=== PATIENT | male | born 1995 | race Caucasian/White ===

== ENCOUNTER 2018-08-09 22:04 | Emergency (ER) | payer OTHER ==
[2018-08-09 22:34] VITALS: BP 119/65; PULSE 66; TEMP 98.4; BMI 22.7
--- NOTE | 2018-08-09 22:42 | PDOC ---
History of Present Illness - General Chief Complaint: Overdose Stated Complaint: DRUG OVERDOSE - History of Present Illness Initial Comments: The pt is a 23M w/ a history of substance abuse who presents from [facility] for evaluation of overdose. Per the pt's father the pt used heroin and xanax today. The pt reports that he smoked an unknown substance. He currently denies any symptoms or pain. Denies EtOH use. Denies recent illness, fevers/chills, cough, chest pain, abdominal pain, N/V/C/D , or changes in sensation. Pt received Narcan at about 2200. 08/09/18 23:03 Past History - Past Medical History Allergies/Adverse Reactions: Allergies Allergy/AdvReac Type Severity Reaction Status Date / Time No Known Allergies Allergy Verified 08/09/18 22:33 COPD: No - Suicide/Smoking/Psychosocial Hx Smoking History: Current every day smoker Have you smoked in the past 12 months: Yes Number of Cigarettes Smoked Daily: 20 Information on smoking cessation initiated: No Hx Alcohol Use: No Drug/Substance Use Hx: No Review of Systems - Review of Systems Able to Perform ROS?: Yes Comments:: GENERAL/CONSTITUTIONAL: No fever or chills. No weakness HEAD, EYES, EARS, NOSE AND THROAT: No change in vision. No ear pain or discharge. No sore throat CARDIOVASCULAR: No chest pain or shortness of breath RESPIRATORY: Denies cough, hemoptysis GASTROINTESTINAL: No nausea, vomiting, diarrhea or constipation GENITOURINARY: No dysuria, frequency, or change in urination MUSCULOSKELETAL: No joint or muscle swelling or pain. No neck or back pain SKIN: No rash NEUROLOGIC: No headache, vertigo, loss of consciousness, or change in strength/ sensation ENDOCRINE: No increased thirst. No abnormal weight change HEMATOLOGIC/LYMPHATIC: No anemia, easy bleeding, or history of blood clots ALLERGIC/IMMUNOLOGIC: No hives or skin allergy 08/09/18 22:42 Is the patient limited Mohawk proficient: No *Physical Exam - Vital Signs Last Vital Signs Temp Pulse Resp BP Pulse Ox 98.4 F 66 17 119/65 100 08/09/18 22:30 08/09/18 22:30 08/09/18 22:30 08/09/18 22:30 08/09/18 22:30 - Physical Exam Comments: GENERAL: Awake, alert, and oriented to person/place/time, in no acute distress HEAD: No signs of trauma, normocephalic, atraumatic EYES: PERRLA, EOMI, sclera anicteric, conjunctiva clear ENT: Hearing grossly normal, nares patent, oropharynx clear without exudates. Moist mucosa LUNGS: No distress, speaks full sentences, clear to auscultation bilaterally HEART: Regular rate and rhythm, normal S1 and S2, no murmurs appreciated, peripheral pulses normal and equal bilaterally ABDOMEN: Soft, nontender, normoactive bowel sounds. No guarding, no rebound EXTREMITIES: Normal inspection, Normal range of motion, no edema. No clubbing or cyanosis NEUROLOGICAL: Cranial nerves II through XII grossly intact. Normal speech, normal gait, no focal sensorimotor deficits SKIN: Warm, Dry 08/09/18 22:42 Medical Decision Making - Medical Decision Making The pt is a 23M w/ a history of heroin and xanax abuse who presents from [facility] for evaluation of overdose. Pt observed until clinically sober. Pt oriented x3, ambulating in ED w/ stable gait, speech clear. Patient does not wish to return to [facility] Plan for D/C w/ PCP and [facility] referrals Discharge instructions and return precautions given Pt in agreement and verbalized understanding Dispo: home *DC/Admit/Observation/Transfer Diagnosis at time of Disposition: Heroin overdose Qualifiers: Encounter type: initial encounter Injury intent: accidental or unintentional Qualified Code(s): T40.1X1A - Poisoning by heroin, accidental (unintentional), initial encounter - Discharge Dispostion Disposition: HOME Condition at time of disposition: Improved Decision to Admit order: No - Referrals [place] [facility] [place] [facility] [place] [Provider Group] Shan Carpenter MD [Staff Physician] - - Patient Instructions Printed Discharge Instructions: Getting Treatment for Drug Addiction Additional Instructions: You were seen in the Emergency Department for evaluation of heroin and xanax overdose. You were given Narcan prior to arrival. Review the handout provided at discharge. Follow up with your primary care provider and if you decide to seek detox. Return to the Emergency Department if you develop fevers/chills, chest pain, trouble breathing, worsening symptoms, or any new/concerning symptoms. - Post Discharge Activity
--- NOTE | 2018-08-10 00:12 | PDOC ---
Documentation entered by Melinda Centeno SCRIBE, acting as scribe for Kayleen Slater DO. Kayleen Slater DO: This documentation has been prepared by the Taryn junior Adrianna, SCRIBE, under my direction and personally reviewed by me in its entirety. I confirm that the documentation accurately reflects all work, treatment, procedures, and medical decision making performed by me. Attending Attestation - Resident Resident Name: Jeevan Khan - ED Attending Attestation I have performed the following: I have examined & evaluated the patient, The case was reviewed & discussed with the resident, I agree w/resident's findings & plan - HPI HPI: The patient is a 23 year old male, with a significant PMH of substance abuse ( heroin and xanax), who presents from [facility] s/p overdose. Patients dad notes he used both heroin and xanax today. Patient states he additionally smoked something, but is unsure of what. Patient was evaluated prior to arrival , but was too sleepy when asked to be responsive so he was sent to the ED for further evaluation. Patient was given 4 narcan at [facility] 1 hour prior to arrival. He is asymptomatic while in the ED. Allergies: NKA, NKDA Surgical History: None reported Social History: Substance abuse (heroin and xanax last used today) 08/09/18 23:59 - Physicial Exam PE: Agree with resident exam. 08/09/18 23:59 - Medical Decision Making 08/09/18 23:38 23-year-old male for evaluation after extensive sleepinessat rehab pt has known history of benzodiazepine and opiate abuse On arrival he is drowsy but arousable He did receive Narcan prior to arrival At this time he is refusing rehabilitation or detox Plan for DC home after short observation in the emergency department
== END 2018-08-10 01:11 | disposition home or self-care (01) ==
LOC: JER 22:04
DX: T40.1X1A Poisoning by heroin, accidental (unintentional), initial encounter (principal)
CPT/HCPCS: 99281-25

== ENCOUNTER 2018-08-11 18:08 | Inpatient (IN) | payer OTHER ==
[2018-08-11 22:13] VITALS: BMI 24.3
[2018-08-11] MEDS ORDERED: METHADONE HCL 10 MG TABLET (FOR DETOX USE ONLY) PO ONE (23:00)
--- NOTE | 2018-08-11 23:06 | HP ---
COWS - Scale Resting Pulse: 0= [place] 80 or Below Sweatin=Flushed/Facial Moisture Restless Observation: 1= Difficult to Sit Still Pupil Size: 0= Normal to Room Light Bone or Joint Aches: 2= Severe Diffuse Aches Runny Nose/ Eye Tearin= Nasal Congestion GI Upset > 30mins: 3= Vomiting/Diarrhea Tremor Observation: 2= Slight Tremor Visible Yawning Observation: 1= 1-2x During Session Anxiety or Irritability: 4=Extreme Anxiety Goose Flesh Skin: 0=Smooth Skin COWS Score: 16 CIWA Score Nausea/Vomitin Muscle Tremors: 4-Moderate,w/Arms Extend Anxiety: 4-Mod. Anxious/Guarded Agitation: 3 Paroxysmal Sweats: 2 Orientation: 0-Oriented Tacttile Disturbances: 0-None Auditory Disturbances: 0-None Visual Disturbances: 0-None Headache: 2-Mild CIWA-Ar Total Score: 17 - Admission Criteria [facility]ASAS Guidelines: Admission for Medically Managed Detox: Requires at least one of the followin. CIWA greater than 12 2. Seizures within the past 24 hours 3. Delirium tremens within the past 24 hours 4. Hallucinations within the past 24 hours 5. Acute intervention needed for co occurring medical disorder 6. Acute intervention needed for co occurring psychiatric disorder 7. Severe withdrawal that cannot be handled at a lower level of care (continued vomiting, continued diarrhea, abnormal vital signs) requiring intravenous medication and/or fluids 8. Admission ROS [facility] Chief Complaint: Heroin and Benzodiazepine withdrawal symptoms Allergies/Adverse Reactions: Allergies Allergy/AdvReac Type Severity Reaction Status Date / Time Penicillins AdvReac Severe Hives Verified 08/11/18 22:05 History of Present Illness: 23 years old male with 5 years of heroin dependence and 3 years of Xanax dependence is seeking admission to detox. Patient reports 6 months of sobriety. He denies past medical history and suicidal ideation at this time. Exam Limitations: No Limitations - Ebola screening Have you traveled outside of the country in the last 21 days: No (N) Have you had contact with anyone from an Ebola affected area: No Do you have a fever: No - Review of Systems Constitutional: Chills, Loss of Appetite, Malaise, Changes in sleep EENT: reports: No Symptoms Reported Respiratory: reports: No Symptoms reported Cardiac: reports: No Symptoms Reported GI: reports: Difficulty Swallowing, Poor Appetite, Poor Fluid Intake, Vomiting, Abdominal cramping : reports: No Symptoms Reported Musculoskeletal: reports: Back Pain, Joint Swelling, Muscle Pain Integumentary: reports: Dryness, Flushing Neuro: reports: Tingling, Tremors Endocrine: reports: No Symptoms Reported Hematology: reports: No Symptoms Reported Psychiatric: reports: Judgement Intact, Anxious, Depressed Other Systems: Reviewed and Negative Patient History - Patient Medical History Hx Anemia: No Hx Asthma: No Hx Chronic Obstructive Pulmonary Disease (COPD): No Hx Cancer: No Hx Cardiac Disorders: No Hx Congestive Heart Failure: No Hx Hypertension: No Hx Hypercholesterolemia: No Hx Pacemaker: No HX Cerebrovascular Accident: No Hx Seizures: No Hx Diabetes: No Hx Gastrointestinal Disorders: No Hx Liver Disease: No Hx Genitourinary Disorders: No Hx Sexually Transmitted Disorders: No Hx Renal Disease (ESRD): No Hx Thyroid Disease: No Hx Human Immunodeficiency Virus (HIV): No (Negative 2015) Hx Hepatitis C: No Hx Depression: No Hx Suicide Attempt: No (Denies suicidal ideatio at this time) Hx Bipolar Disorder: No Hx Schizophrenia: No - Patient Surgical History Past Surgical History: No - PPD History Previous Implant?: Yes Documented Results: Negative w/o proof Implanted On Prior [facility] Admission?: No PPD to be Administered?: Yes - Reproductive History Patient is a Female of Child Bearing Age (11 -55 yrs old): No (male) - Smoking Cessation Smoking history: Current every day smoker Have you smoked in the past 12 months: Yes Aproximately how many cigarettes per day: 20 Hx Chewing Tobacco Use: No Initiated information on smoking cessation: Yes 'Breaking Loose' booklet given: 08/11/18 - Substance & Tx. History Hx Alcohol Use: No Hx Substance Use: Yes Substance Use Type: Heroin, Tranquilizers Hx Substance Use Treatment: Yes ([facility]) - Substances abused Heroin Substance route: Inhalation Frequency: Daily Amount used: 1 bundle Age of first use: 18 Date of last use: 08/11/18 Alprazolam (Xanax) Substance route: Oral Frequency: Daily Amount used: 8 mg Age of first use: 18 Date of last use: 08/11/18 Family Disease History - Family Disease History Family Disease History: CA: Mother (Lung Ca - ) Admission Physical Exam [facility] - Vital Signs Vital Signs: Vital Signs - 24 hr 08/11/18 08/11/18 21:34 22:06 Temperature 97.9 F 97.9 F Pulse Rate 66 66 Respiratory 18 18 Rate Blood Pressure 106/64 106/64 - Physical General Appearance: Yes: Moderate Distress, Tremorous, Irritable, Sweating, Anxious HEENTM: Yes: Within Normal Limits, Normal ENT Inspection, Normal Voice, DOC Respiratory: Yes: Lungs Clear, Normal Breath Sounds, No Respiratory Distress Neck: Yes: Supple, Trachea in good position Breast: Yes: Breast Exam Deferred Cardiology: Yes: Regular Rhythm, Regular Rate Abdominal: Yes: Normal Bowel Sounds Genitourinary: Yes: Within Normal Limits Back: Yes: Normal Inspection Musculoskeletal: Yes: Back pain, Muscle Pain, Muscle weakness Extremities: Yes: Tremors Neurological: Yes: Alert, Motor Strength 5/5, Normal Mood/Affect Integumentary: Yes: Warm Lymphatic: Yes: Within Normal Limits - Diagnostic (1) Opioid dependence with withdrawal Current Visit: Yes Status: Chronic (2) Sedative, hypnotic or anxiolytic abuse, uncomplicated Current Visit: Yes Status: Chronic (3) Nicotine dependence Current Visit: Yes Status: Chronic Qualifiers: Nicotine product type: cigarettes Substance use status: uncomplicated Qualified Code(s): F17.210 - Nicotine dependence, cigarettes, uncomplicated Cleared for Admission [facility] - Detox or Rehab [facility] Level of Care: Medically Managed Detox Regimen/Protocol: Methadone/Valium Claeared for Rehab Admission: No Breathalyzer - Breathalyzer Breathalyzer: 0 Urine Drug Screen - Test Device Lot number: [id number] Expiration date: 04/20/20 - Control Is test valid?: Yes - Results Drug screen NEGATIVE: No Urine drug screen results: FEN-Fentanyl, MOP-Opiates, BZO-Benzodiazepines Inpatient Rehab Admission - Rehab Decision to Admit Inpatient rehab admission?: No
[2018-08-11] MEDS ORDERED: diazePAM 5 MG TABLET PO PRN (23:23)
[2018-08-11] MEDS ORDERED: MAG HYDROX/AL HYDROX/SIMETH 30 ML UNIT-DOSE CUP PO PRN (23:23)
[2018-08-11] MEDS ORDERED: MAGNESIUM CITRATE 300 ML BOTTLE PO PRN (23:23)
[2018-08-11] MEDS ORDERED: MAGNESIUM HYDROX 2400MG/30ML ORAL SUSPENSION 30 ML CUP PO PRN (23:23)
[2018-08-11] MEDS ORDERED: IBUPROFEN 400 MG TABLET (FP) PO PRN (23:23)
[2018-08-11] MEDS ORDERED: ACETAMINOPHEN 325 MG TABLET (FP) PO PRN ×2 (23:23)
[2018-08-11] MEDS ORDERED: METHOCARBAMOL 500 MG TABLET PO PRN (23:23)
[2018-08-11] MEDS ORDERED: cloNIDine HCL 0.1 MG TABLET PO PRN (23:23)
[2018-08-11] MEDS ORDERED: NICOTINE POLACRILEX 2 MG GUM BUC PRN (23:23)
[2018-08-11] MEDS ORDERED: MENTHOL/PHENOL 1 EACH UD MM PRN (23:23)
[2018-08-11] MEDS ORDERED: MELATONIN 5 MG TABLETS PO PRN (23:23)
[2018-08-11] MEDS ORDERED: BISMUTH SUBSALICYLATE 524 MG/30 ML UD PO PRN (23:23)
[2018-08-11] MEDS ORDERED: diazePAM 5 MG TABLET PO SCH (23:40)
[2018-08-11] MEDS ORDERED: diazePAM 2 MG TABLET PO SCH (23:45)
[2018-08-12] MEDS: hydrOXYzine PAMOATE 25 MG CAPSULE (FP) PO PRN (00:41)
[2018-08-12] MEDS: diazePAM 5 MG TABLET PO SCH ×3 (06:05→22:56)
[2018-08-12] MEDS ORDERED: METHADONE HCL 10 MG TABLET (FOR DETOX USE ONLY) PO ONE (10:00)
[2018-08-12 10:41] LABS: ALBUMIN 3.7 g/dl (3.4-5.0); BILIRUBIN,TOTAL 0.6 mg/dL (0.2-1); BLOOD UREA NITROGEN 8.4 mg/dL (7-18); CREATININE 0.9 mg/dL (0.55-1.3); HEMATOCRIT 37.9 % (35.4-49); HEMOGLOBIN 13.2 GM/dL (11.7-16.9); MCH 30.1 pg (25.7-33.7); MCHC 34.9 g/dl (32.0-35.9); MEAN CELL VOLUME 86.2 fl (80-96); MEAN PLT VOLUME 8.8 fl (7.5-11.1); PLATELET COUNT 190 K/MM3 (134-434); POTASSIUM 3.6 mmol/L (3.5-5.1); RDW 13.2 % (11.9-15.9); TOT PROT 6.2 g/dl (6.4-8.2); WHITE BLOOD COUNT 7.3 K/mm3 (4.0-10.0)
[2018-08-12] MEDS: PRENATAL VITAMINS W/ FOLIC ACID TABLET (FP) PO SCH (10:58)
[2018-08-12] MEDS: NICOTINE 21 MG/24 HOURS TOPICAL PATCH TD SCH (10:58)
--- NOTE | 2018-08-12 12:02 | PN ---
S CIWA - CIWA Score Nausea/Vomitin-Mild Nausea/No Vomiting Muscle Tremors: None Anxiety: 3 Agitation: 3 Paroxysmal Sweats: 3 Orientation: 0-Oriented Tacttile Disturbances: 0-None Auditory Disturbances: 0-None Visual Disturbances: 0-None Headache: 3-Moderate CIWA-Ar Total Score: 13 S COWS - Scale Resting Pulse: 0= [place] 80 or Below Sweatin=Flushed/Facial Moisture Restless Observation: 1= Difficult to Sit Still Pupil Size: 2= Moderately Dilated Bone or Joint Aches: 2= Severe Diffuse Aches Runny Nose/ Eye Tearin= None GI Upset > 30mins: 2= Nausea/Diarrhea Tremor Observation of Outstretched Hands: 0= None Yawning Observation: 0= None Anxiety or Irritability: 2=Irritable/Anxious Goose Flesh Skin: 0=Smooth Skin COWS Score: 11 S Progress Note (SOAP) Subjective: Laboratory Tests 08/12/18 08/12/18 08:00 08:00 WBC 7.3 RBC 4.40 Hgb 13.2 Hct 37.9 MCV 86.2 MCH 30.1 MCHC 34.9 RDW 13.2 Plt Count 190 MPV 8.8 Sodium 141 Potassium 3.6 Chloride 106 Carbon Dioxide 28 Anion Gap 7 L BUN 8.4 Creatinine 0.9 Est GFR (CKD-EPI)AfAm 137.10 Est GFR (CKD-EPI)NonAf 118.29 Random Glucose 68 L Calcium 9.0 Total Bilirubin 0.6 AST 14 L ALT 20 Alkaline Phosphatase 82 Total Protein 6.2 L Albumin 3.7 Vital Signs (72 hours) 08/11/18 08/11/18 08/12/18 21:34 22:06 00:30 Temperature 97.9 F 97.9 F Pulse Rate 66 66 Respiratory 18 18 18 Rate Blood Pressure 106/64 106/64 08/12/18 08/12/18 08/12/18 03:30 08:28 09:51 Temperature 96.6 F L 99.1 F Pulse Rate 51 L 75 Respiratory 18 16 16 Rate Blood Pressure 101/57 L 104/58 L PATIENT C/O NAUSEA, ANXIETY, SWEATING AND RESTLESSNESS. Objective: 08/12/18 12:02 PE: ALERT AND ORIENTED X 3 SKIN + FACIAL MOISTURE, WARM +PERRLA, PUPILS 3MM, EOMS INTACT BL EXT FULL ROM, AMB AD MAX +ANXIOUS/RESTLESSNESS Vital Signs Temperature 99.1 F 08/12/18 09:51 Pulse Rate 75 08/12/18 09:51 Respiratory Rate 16 08/12/18 09:51 Blood Pressure 104/58 L 08/12/18 09:51 O2 Sat by Pulse Oximetry (%) Assessment: 08/12/18 12:03 WITHDRAWAL SX Plan: CONTINUE DETOX MONITOR CLINICALLY
[2018-08-12] MEDS: diazePAM 5 MG TABLET PO PRN ×2 (17:09→21:14)
[2018-08-12] MEDS ORDERED: THIAMINE HCL 100 MG TABLET (FP) PO SCH (22:00)
[2018-08-13] MEDS: diazePAM 5 MG TABLET PO SCH ×2 (05:54→18:06)
[2018-08-13] MEDS: NICOTINE 21 MG/24 HOURS TOPICAL PATCH TD SCH (09:46)
[2018-08-13] MEDS: hydrOXYzine PAMOATE 25 MG CAPSULE (FP) PO PRN (09:48)
[2018-08-13] MEDS: PRENATAL VITAMINS W/ FOLIC ACID TABLET (FP) PO SCH (09:48)
[2018-08-13] MEDS ORDERED: diazePAM 5 MG TABLET PO SCH (10:00)
[2018-08-13] MEDS ORDERED: METHADONE HCL 10 MG TABLET (FOR DETOX USE ONLY) PO ONE (10:00)
[2018-08-13] MEDS: diazePAM 5 MG TABLET PO PRN ×2 (10:47→14:49)
--- NOTE | 2018-08-13 13:00 | EKG ---
Test Reason : Blood Pressure : / mmHG Vent. Rate : 048 BPM Atrial Rate : 048 BPM P-R Int : 148 ms QRS Dur : 102 ms QT Int : 460 ms P-R-T Axes : 051 069 053 degrees QTc Int : 410 ms SINUS BRADYCARDIA OTHERWISE NORMAL ECG NO PREVIOUS ECGS AVAILABLE Confirmed by SHANNA WOOD MD ([id number]) on 08/13/2018 1:00:39 PM Referred By: Queenie Pereyra Confirmed By:SHANNA WOOD MD
--- NOTE | 2018-08-13 14:51 | PN ---
[facility] CIWA - CIWA Score Nausea/Vomitin-Mild Nausea/No Vomiting Muscle Tremors: 3 Anxiety: 3 Agitation: 3 Paroxysmal Sweats: 3 Orientation: 0-Oriented Tacttile Disturbances: 0-None Auditory Disturbances: 0-None Visual Disturbances: 0-None Headache: 0-None Present CIWA-Ar Total Score: 13 S COWS - Scale Resting Pulse: 0= [place] 80 or Below Sweatin= Chills/Flushing Restless Observation: 3= Extraneous Movement Pupil Size: 0= Normal to Room Light Bone or Joint Aches: 2= Severe Diffuse Aches Runny Nose/ Eye Tearin= None GI Upset > 30mins: 1= Stomach Cramp Tremor Observation of Outstretched Hands: 2= Slight Tremor Visible Yawning Observation: 0= None Anxiety or Irritability: 2=Irritable/Anxious Goose Flesh Skin: 0=Smooth Skin COWS Score: 11 S Progress Note (SOAP) Subjective: Anxious, sweating, chills Objective: 08/13/18 14:50 Last Vital Signs Temp Pulse Resp BP Pulse Ox 98.1 F 55 L 17 118/64 08/13/18 14:11 08/13/18 14:11 08/13/18 14:11 08/13/18 14:11 Laboratory Tests 08/12/18 08/12/18 08/12/18 08:00 08:00 08:00 WBC 7.3 RBC 4.40 Hgb 13.2 Hct 37.9 MCV 86.2 MCH 30.1 MCHC 34.9 RDW 13.2 Plt Count 190 MPV 8.8 Sodium 141 Potassium 3.6 Chloride 106 Carbon Dioxide 28 Anion Gap 7 L BUN 8.4 Creatinine 0.9 Est GFR (CKD-EPI)AfAm 137.10 Est GFR (CKD-EPI)NonAf 118.29 Random Glucose 68 L Calcium 9.0 Total Bilirubin 0.6 AST 14 L ALT 20 Alkaline Phosphatase 82 Total Protein 6.2 L Albumin 3.7 RPR Titer Nonreactive Labs reviewed Assessment: 08/13/18 14:50 Withdrawal symptoms Plan: Continue detox Encouraged PO water hydration
[2018-08-13 18:05] VITALS: BP 113/69; PULSE 65; TEMP 97.9
--- NOTE | 2018-08-13 18:07 | PN ---
[facility] Progress Note Note: patient did no want to complete treatment,for personal issue,all attempts to convince patient to stay with no avail, the high risk of relapsing explained,patient understood,signed release AMA, advise to call 911 if not feeling well
--- NOTE | 2018-08-13 18:08 | DS ---
[facility] Detox Discharge Summary Admission Date: 08/11/18 Discharge Date: 08/13/18 - History Present History: Opioid Dependence, Sedative Dependence Additional Comments: patient signed release ama - Physical Exam Results Vital Signs: Vital Signs Temperature 97.9 F 08/13/18 18:05 Pulse Rate 65 08/13/18 18:05 Respiratory Rate 18 08/13/18 18:05 Blood Pressure 113/69 08/13/18 18:05 O2 Sat by Pulse Oximetry (%) Pertinent Admission Physical Exam Findings: withdrawal signs and symptom Laboratory Last Values WBC 7.3 K/mm3 (4.0-10.0) 08/12/18 08:00 RBC 4.40 M/mm3 (4.00-5.60) 08/12/18 08:00 Hgb 13.2 GM/dL (11.7-16.9) 08/12/18 08:00 Hct 37.9 % (35.4-49) 08/12/18 08:00 MCV 86.2 fl (80-96) 08/12/18 08:00 MCH 30.1 pg (25.7-33.7) 08/12/18 08:00 MCHC 34.9 g/dl (32.0-35.9) 08/12/18 08:00 RDW 13.2 % (11.9-15.9) 08/12/18 08:00 Plt Count 190 K/MM3 (134-434) 08/12/18 08:00 MPV 8.8 fl (7.5-11.1) 08/12/18 08:00 Sodium 141 mmol/L (136-145) 08/12/18 08:00 Potassium 3.6 mmol/L (3.5-5.1) 08/12/18 08:00 Chloride 106 mmol/L (98-107) 08/12/18 08:00 Carbon Dioxide 28 mmol/L (21-32) 08/12/18 08:00 Anion Gap 7 MMOL/L (8-16) L 08/12/18 08:00 BUN 8.4 mg/dL (7-18) 08/12/18 08:00 Creatinine 0.9 mg/dL (0.55-1.3) 08/12/18 08:00 Est GFR (CKD-EPI)AfAm 137.10 08/12/18 08:00 Est GFR (CKD-EPI)NonAf 118.29 08/12/18 08:00 Random Glucose 68 mg/dL (74-106) L 08/12/18 08:00 Calcium 9.0 mg/dL (8.5-10.1) 08/12/18 08:00 Total Bilirubin 0.6 mg/dL (0.2-1) 08/12/18 08:00 AST 14 U/L (15-37) L 08/12/18 08:00 ALT 20 U/L (13-61) 08/12/18 08:00 Alkaline Phosphatase 82 U/L (45-117) 08/12/18 08:00 Total Protein 6.2 g/dl (6.4-8.2) L 08/12/18 08:00 Albumin 3.7 g/dl (3.4-5.0) 08/12/18 08:00 RPR Titer Nonreactive (NONREACTIVE) 08/12/18 08:00 Vital Signs Temperature 97.9 F 08/13/18 18:05 Pulse Rate 65 08/13/18 18:05 Respiratory Rate 18 08/13/18 18:05 Blood Pressure 113/69 08/13/18 18:05 O2 Sat by Pulse Oximetry (%) - Medication Discharge Medications: Ambulatory Orders NK [No Known Home Medication] 08/11/18 - AMA Did Patient Leave Against Medical Advice: Yes
[2018-08-14] MEDS ORDERED: diazePAM 5 MG TABLET PO SCH (06:00)
[2018-08-14] MEDS ORDERED: diazePAM 5 MG TABLET PO ONE (06:00)
[2018-08-14] MEDS ORDERED: METHADONE HCL 10 MG TABLET (FOR DETOX USE ONLY) PO ONE (10:00)
[2018-08-15] MEDS ORDERED: METHADONE HCL 5 MG TABLET (FOR DETOX USE ONLY) PO ONE (06:00)
== END 2018-08-13 17:45 | disposition left against medical advice (07) | DRG 770 ==
LOC: YASAS 18:08 → Y6N 23:25
PROVIDERS: ADMIT Surgery; ATTEND Surgery
PROC: HZ2ZZZZ Detoxification Services for Substance Abuse Treatment (ICD-10-PCS; principal; 2018-08-11)
DX: F11.23 Opioid dependence with withdrawal (principal); F13.20 Sedative, hypnotic or anxiolytic dependence, uncomplicated; F17.210 Nicotine dependence, cigarettes, uncomplicated
CPT/HCPCS: 36415; 80053; 85027; 86593; 93005; 93010; 99281-25

== ENCOUNTER 2018-09-01 08:38 | Inpatient (IN) | payer OTHER ==
[2018-09-01 09:13] VITALS: BMI 23.5
--- NOTE | 2018-09-01 09:43 | HP ---
COWS - Scale Resting Pulse: 0= [place] 80 or Below Sweatin= Chills/Flushing Restless Observation: 0= Sits Still Pupil Size: 0= Normal to Room Light Bone or Joint Aches: 4=Acute Joint/Muscle Pain Runny Nose/ Eye Tearin= None GI Upset > 30mins: 1= Stomach Cramp Tremor Observation: 0= None Yawning Observation: 0= None Anxiety or Irritability: 2=Irritable/Anxious Goose Flesh Skin: 0=Smooth Skin COWS Score: 8 CIWA Score Nausea/Vomitin-No Nausea/No Vomiting Muscle Tremors: None Anxiety: 3 Agitation: 0-Normal Activity Paroxysmal Sweats: No Perspiration Orientation: 0-Oriented Tacttile Disturbances: 0-None Auditory Disturbances: 0-None Visual Disturbances: 0-None Headache: 2-Mild CIWA-Ar Total Score: 5 - Admission Criteria [facility]ASAS Guidelines: Admission for Medically Managed Detox: Requires at least one of the followin. CIWA greater than 12 2. Seizures within the past 24 hours 3. Delirium tremens within the past 24 hours 4. Hallucinations within the past 24 hours 5. Acute intervention needed for co occurring medical disorder 6. Acute intervention needed for co occurring psychiatric disorder 7. Severe withdrawal that cannot be handled at a lower level of care (continued vomiting, continued diarrhea, abnormal vital signs) requiring intravenous medication and/or fluids 8. Admission [facility] Allergies/Adverse Reactions: Allergies Allergy/AdvReac Type Severity Reaction Status Date / Time Penicillins AdvReac Severe Hives Verified 09/01/18 09:08 History of Present Illness: pt here requesting detox from heroin use , reports 4 bundles and 12 mg xanax /day since age 19 , latest use 2 am today , current symptoms as above . Denies ivdu . OD x 1 , Narcan by [facility] . - Ebola screening Have you traveled outside of the country in the last 21 days: No Have you had contact with anyone from an Ebola affected area: No Do you have a fever: No Patient History - Patient Medical History Hx Anemia: No Hx Asthma: No Hx Chronic Obstructive Pulmonary Disease (COPD): No Hx Cancer: No Hx Cardiac Disorders: No Hx Congestive Heart Failure: No Hx Hypertension: No Hx Hypercholesterolemia: No Hx Pacemaker: No HX Cerebrovascular Accident: No Hx Seizures: No Hx Diabetes: No Hx Gastrointestinal Disorders: No Hx Liver Disease: No Hx Genitourinary Disorders: No Hx Sexually Transmitted Disorders: No Hx Renal Disease (ESRD): No Hx Thyroid Disease: No Hx Human Immunodeficiency Virus (HIV): No (Negative 2016) Hx Hepatitis C: No Hx Depression: No Hx Suicide Attempt: No (Denies suicidal ideatio at this time) Hx Bipolar Disorder: No Hx Schizophrenia: No - Patient Surgical History Past Surgical History: No Hx Neurologic Surgery: No Hx Cataract Extraction: No Hx Cardiac Surgery: No Hx Lung Surgery: No Hx Breast Surgery: No Hx Breast Biopsy: No Hx Abdominal Surgery: No Hx Appendectomy: No Hx Cholecystectomy: No Hx Genitourinary Surgery: No Hx Section: No Hx Orthopedic Surgery: No Anesthesia Reaction: No - PPD History Date: 08/14/18 - Smoking Cessation Smoking history: Current every day smoker Have you smoked in the past 12 months: Yes Aproximately how many cigarettes per day: 20 Hx Chewing Tobacco Use: No Initiated information on smoking cessation: No - Substances abused Heroin Substance route: Inhalation Frequency: Daily Amount used: 4 bundle Age of first use: 19 Date of last use: 09/01/18 Alprazolam (Xanax) Substance route: Oral Frequency: Daily Amount used: 10mg Age of first use: 19 Date of last use: 09/01/18 Family Disease History - Family Disease History Family Disease History: CA: Mother (Lung Ca - ) Admission Physical Exam [facility] - Vital Signs Vital Signs: Vital Signs - 24 hr 09/01/18 09/01/18 09:07 09:30 Temperature 97.9 F 97.9 F Pulse Rate 67 67 Respiratory 16 16 Rate Blood Pressure 90/57 L 90/57 L - Physical General Appearance: Yes: Mild Distress, Anxious HEENTM: Yes: Hearing grossly Normal, Normocephalic, Normal Voice, Other (pupils small for light) Respiratory: Yes: Lungs Clear, Normal Breath Sounds, No Respiratory Distress, No Accessory Muscle Use Neck: Yes: No masses,lesions,Nodules, Trachea in good position Cardiology: Yes: Regular Rhythm, Regular Rate, S1, S2 Abdominal: Yes: Non Tender, Soft Musculoskeletal: Yes: Gait Steady Extremities: Yes: Normal Range of Motion Neurological: Yes: Fully Oriented, Alert, Motor Strength 5/5 Integumentary: Yes: Warm - Diagnostic (1) Nicotine dependence Current Visit: Yes Status: Chronic Qualifiers: Nicotine product type: cigarettes Substance use status: uncomplicated Qualified Code(s): F17.210 - Nicotine dependence, cigarettes, uncomplicated (2) Opioid dependence with withdrawal Current Visit: Yes Status: Chronic (3) Sedative, hypnotic or anxiolytic abuse, uncomplicated Current Visit: Yes Status: Chronic Breathalyzer - Breathalyzer Breathalyzer: 0 Urine Drug Screen - Test Device Lot number: [id number] Expiration date: 06/20/20 - Control Is test valid?: Yes - Results Drug screen NEGATIVE: No Urine drug screen results: MOP-Opiates, OXY-Oxycodone, BZO-Benzodiazepines Inpatient Rehab Admission - Rehab Decision to Admit Inpatient rehab admission?: No
[2018-09-01] MEDS ORDERED: MAG HYDROX/AL HYDROX/SIMETH 30 ML UNIT-DOSE CUP PO PRN (09:48)
[2018-09-01] MEDS ORDERED: BISMUTH SUBSALICYLATE 262 MG/15 ML BTL PO PRN (09:48)
[2018-09-01] MEDS ORDERED: MAGNESIUM HYDROX 2400MG/30ML ORAL SUSPENSION 30 ML CUP PO PRN (09:48)
[2018-09-01] MEDS ORDERED: MELATONIN 5 MG TABLETS PO PRN (09:48)
[2018-09-01] MEDS ORDERED: MENTHOL/PHENOL 1 EACH UD MM PRN (09:48)
[2018-09-01] MEDS ORDERED: MAGNESIUM CITRATE 300 ML BOTTLE PO PRN (09:48)
[2018-09-01] MEDS ORDERED: IBUPROFEN 400 MG TABLET (FP) PO PRN (09:48)
[2018-09-01] MEDS ORDERED: ACETAMINOPHEN 325 MG TABLET (FP) PO PRN ×2 (09:48)
[2018-09-01] MEDS: chlordiazePOXIDE HCL 25 MG CAPSULE PO SCH ×3 (11:05→22:11)
[2018-09-01] MEDS: PRENATAL VITAMINS W/ FOLIC ACID TABLET (FP) PO SCH (11:06)
[2018-09-01] MEDS: NICOTINE POLACRILEX 2 MG GUM BUC PRN ×2 (11:12→13:11)
[2018-09-01] MEDS ORDERED: METHADONE HCL 10 MG TABLET (FOR DETOX USE ONLY) PO ONE (12:00)
[2018-09-01] MEDS: chlordiazePOXIDE HCL 25 MG CAPSULE PO PRN ×2 (14:08→19:56)
[2018-09-01] MEDS: NICOTINE 21 MG/24 HOURS TOPICAL PATCH TD SCH (15:21)
[2018-09-01 16:57] LABS: HEMATOCRIT 37.9 % (35.4-49); MCH 29.8 pg (25.7-33.7); MCHC 34.4 g/dl (32.0-35.9); MEAN CELL VOLUME 86.5 fl (80-96); MEAN PLT VOLUME 8.7 fl (7.5-11.1); PLATELET COUNT 189 K/MM3 (134-434); RBC 4.38 M/mm3 (4.00-5.60); RDW 13.7 % (11.9-15.9); WHITE BLOOD COUNT 7.7 K/mm3 (4.0-10.0)
[2018-09-01 16:59] LABS: ALBUMIN 3.9 g/dl (3.4-5.0); BILIRUBIN,TOTAL 0.6 mg/dL (0.2-1); BLOOD UREA NITROGEN 9.8 mg/dL (7-18); CALCIUM 8.8 mg/dL (8.5-10.1); CREATININE 0.9 mg/dL (0.55-1.3); POTASSIUM 4.7 mmol/L (3.5-5.1); TOT PROT 6.8 g/dl (6.4-8.2)
[2018-09-01] MEDS ORDERED: THIAMINE HCL 100 MG TABLET (FP) PO SCH (22:00)
[2018-09-02] MEDS: chlordiazePOXIDE HCL 25 MG CAPSULE PO SCH (05:49)
[2018-09-02] MEDS: NICOTINE POLACRILEX 2 MG GUM BUC PRN (07:40)
[2018-09-02] MEDS ORDERED: METHADONE HCL 10 MG TABLET (FOR DETOX USE ONLY) ONE (09:25)
[2018-09-02] MEDS ORDERED: METHADONE HCL 5 MG TABLET (FOR DETOX USE ONLY) ONE (09:25)
[2018-09-02] MEDS ORDERED: diazePAM 5 MG TABLET PO PRN (09:37)
[2018-09-02] MEDS ORDERED: METHOCARBAMOL 500 MG TABLET PO PRN (09:39)
[2018-09-02] MEDS ORDERED: diazePAM 5 MG TABLET PO ONE (10:00)
[2018-09-02] MEDS ORDERED: METHADONE (DETOX) 20 MG, METHADONE (DETOX) 5 MG PO ONE (10:00)
[2018-09-02] MEDS: NICOTINE 21 MG/24 HOURS TOPICAL PATCH TD SCH (10:18)
[2018-09-02] MEDS: PRENATAL VITAMINS W/ FOLIC ACID TABLET (FP) PO SCH (10:19)
[2018-09-02] MEDS ORDERED: PROCHLORPERAZINE MALEATE 5 MG TABLET PO PRN (13:18)
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
[2018-09-02] MEDS ORDERED: diazePAM 5 MG TABLET PO SCH (14:00)
[2018-09-02 14:16] VITALS: BP 101/68; PULSE 59; TEMP 97.2
--- NOTE | 2018-09-02 14:46 | DS ---
[facility] Detox Discharge Summary Admission Date: 09/01/18 Discharge Date: 09/02/18 - History Present History: Opioid Dependence, Sedative Dependence Additional Comments: DESPITE EFFORTS BY ADOPTION SPECIALIST AND BY NURSING STAFF TO ADDRESS PATIENT'S MEDICAL NEEDS / CONCERNS, PATIENT DOES NOT WISH TO REMAIN TO COMPLETE DETOX REGIMEN. RISKS OF LEAVING DETOX UNIT AGAINST MEDICAL ADVICE AND PRIOR TO COMPLETION OF DETOX REGIMEN EXPLAINED TO PATIENT. PATIENT ADVISED TO GO IMMEDIATELY TO NEAREST ER SHOULD ANY INTOLERABLE WITHDRAWAL / DETOX SYMPTOMS DEVELOP AT ANY TIME. PATIENT VERBALIZED UNDERSTANDING OF ALL INFORMATION / RECOMMENDATIONS PRESENTED TO HIM PRIOR TO DEPARTURE FROM DETOX UNIT. PATIENT LEFT DETOX UNIT IN STABLE MEDICAL CONDITION. Pertinent Past History: Nicotine Dependence. - Physical Exam Results Vital Signs: Vital Signs Temperature 97.2 F L 09/02/18 14:15 Pulse Rate 59 L 09/02/18 14:15 Respiratory Rate 16 09/02/18 14:15 Blood Pressure 101/68 09/02/18 14:15 O2 Sat by Pulse Oximetry (%) Pertinent Admission Physical Exam Findings: WITHDRAWAL SYMPTOMS. Laboratory Tests 09/01/18 09/01/18 09/01/18 14:33 14:33 14:33 WBC 7.7 RBC 4.38 Hgb 13.0 Hct 37.9 MCV 86.5 MCH 29.8 MCHC 34.4 RDW 13.7 Plt Count 189 MPV 8.7 Sodium 141 Potassium 4.7 Chloride 106 Carbon Dioxide 31 Anion Gap 4 L BUN 9.8 Creatinine 0.9 Est GFR (CKD-EPI)AfAm 137.10 Est GFR (CKD-EPI)NonAf 118.29 Random Glucose 71 L Calcium 8.8 Total Bilirubin 0.6 AST 12 L ALT 16 Alkaline Phosphatase 77 Total Protein 6.8 Albumin 3.9 RPR Titer Nonreactive HIV 1&2 Antibody Screen HIV P24 Antigen 09/01/18 14:33 WBC RBC Hgb Hct MCV MCH MCHC RDW Plt Count MPV Sodium Potassium Chloride Carbon Dioxide Anion Gap BUN Creatinine Est GFR (CKD-EPI)AfAm Est GFR (CKD-EPI)NonAf Random Glucose Calcium Total Bilirubin AST ALT Alkaline Phosphatase Total Protein Albumin RPR Titer HIV 1&2 Antibody Screen Negative HIV P24 Antigen Negative LABS NOTED. - Treatment Hospital Course: Detoxed Safely - Medication Discharge Medications: Ambulatory Orders NK [No Known Home Medication] 08/11/18 - Diagnosis (1) Nicotine dependence Current Visit: Yes Status: Chronic Qualifiers: Nicotine product type: cigarettes Substance use status: uncomplicated Qualified Code(s): F17.210 - Nicotine dependence, cigarettes, uncomplicated (2) Opioid dependence with withdrawal Current Visit: Yes Status: Acute (3) Sedative, hypnotic or anxiolytic abuse, uncomplicated Current Visit: Yes Status: Acute - AMA Did Patient Leave Against Medical Advice: Yes (PATIENT DID NOT WISH TO REMAIN TO COMPLETE DETOX REGIMEN.)
[2018-09-03] MEDS ORDERED: chlordiazePOXIDE HCL 25 MG CAPSULE PO SCH (05:00)
[2018-09-03] MEDS ORDERED: METHADONE HCL 10 MG TABLET (FOR DETOX USE ONLY) PO ONE (10:00)
[2018-09-04] MEDS ORDERED: chlordiazePOXIDE HCL 10 MG CAPSULE PO PRN
[2018-09-04] MEDS ORDERED: chlordiazePOXIDE HCL 10 MG CAPSULE PO SCH (05:00)
[2018-09-04] MEDS ORDERED: diazePAM 5 MG TABLET PO SCH (06:00)
[2018-09-04] MEDS ORDERED: METHADONE (DETOX) 10 MG, METHADONE (DETOX) 5 MG PO ONE (10:00)
[2018-09-05] MEDS ORDERED: chlordiazePOXIDE HCL 10 MG CAPSULE PO SCH (05:00)
[2018-09-05] MEDS ORDERED: diazePAM 5 MG TABLET PO ONE (06:00)
[2018-09-05] MEDS ORDERED: METHADONE HCL 10 MG TABLET (FOR DETOX USE ONLY) PO ONE (10:00)
[2018-09-06] MEDS ORDERED: chlordiazePOXIDE HCL 10 MG CAPSULE PO ONE (05:00)
[2018-09-06] MEDS ORDERED: METHADONE HCL 5 MG TABLET (FOR DETOX USE ONLY) PO ONE (06:00)
== END 2018-09-02 14:50 | disposition left against medical advice (07) | DRG 770 ==
LOC: YASAS 08:38 → Y3N 10:20
PROVIDERS: ADMIT Surgery; ATTEND Surgery
PROC: HZ2ZZZZ Detoxification Services for Substance Abuse Treatment (ICD-10-PCS; principal; 2018-09-01)
DX: F11.23 Opioid dependence with withdrawal (principal); F13.230 Sedative, hypnotic or anxiolytic dependence with withdrawal, uncomplicated; F17.210 Nicotine dependence, cigarettes, uncomplicated; Z88.0 Allergy status to penicillin
CPT/HCPCS: 36415; 80053; 85027; 86593; 87389